=== PATIENT | female | born 1950 | race Caucasian/White ===

== ENCOUNTER 2022-05-21 10:59 | Outpatient (CLI) | payer MEDICARE ==
[2022-06-01] MEDS ORDERED: MAGN400O6 PO (07:38)
[2022-06-01] MEDS ORDERED: ASPI-1100 PO (07:38)
[2022-06-01] MEDS ORDERED: OXYC5CAP18 PO (07:38)
[2022-06-01] MEDS ORDERED: DOCU100C36 PO (07:38)
== END 2022-05-21 23:59 | disposition home or self-care (01) ==
LOC: LAB 10:59
PROVIDERS: ATTEND Specialist
DX: Z01.812 Encounter for preprocedural laboratory examination (principal); Z20.822 Contact with and (suspected) exposure to COVID-19
CPT/HCPCS: U0003; C9803

== ENCOUNTER 2022-05-28 05:11 | Inpatient (IN) | payer MEDICARE, OTHER ==
[~2022-05-28] VITALS: Ht 162.6 cm; Wt 79.4 kg
[~2022-05-28 05:11] MED LIST: ANESTHESIA TRAY IN PYXIS 1 EA TRAY MC ONE
[2022-05-28] MEDS ORDERED: HYDROMORPHONE INJ 2 MG/ML DISP.SYRIN ONE (06:25)
[2022-05-28] MEDS ORDERED: FENTANYL PF 250MCG/5ML AMPUL ONE (06:25)
[2022-05-28] MEDS ORDERED: MIDAZOLAM HCL 2 MG/2ML VIAL ONE (06:26)
[2022-05-28] MEDS ORDERED: FAMOTIDINE/PF INJ 20 MG/2 ML VIAL IV ONE (06:27)
[2022-05-28] MEDS ORDERED: ROCURONIUM BROMIDE 50 MG/5 ML ONE (06:27)
[2022-05-28] MEDS ORDERED: SUCCINYLCHOLINE CHLORIDE 20 MG/ML VIAL ONE (06:27)
--- NOTE | 2022-05-28 06:32 | NUR ---
MS RN NOTES PT A/OX4 ABLE TO MAKE NEEDS KNOW LITHU[place]IAN SPEAKING BUT CAN UNDERSTAND [place]. PT HAS IV ACCESS ON THE R HAND #20G S/L CONSENTS SIGNED, URINE COLLECTED, ALL NECESSARY LABS ORDERED. VITAL SIGNS FOLLOWS BP129/70,HR 81, RR18,TEMP 98.2 O2 SAT 97%. PT BELONGING CHECKED BELONGINGS LEFT AT BEDSIDE. PT BROUGHT CANE WITH HER AT BEDSIDE.PT TAKEN BY TRANSPORTATION TO OR AT THIS TIME.
[2022-05-28 06:54] VITALS: BP 129/70
--- NOTE | 2022-05-28 07:38 | NUR ---
ms opening note received report from date night sitter rn,patient is currently in surgery
[2022-05-28] MEDS ORDERED: POLYMYXIN B SULFATE 500,000 UNITS ONE (07:45)
[2022-05-28] MEDS ORDERED: BUPIVACAINE 0.5 % PF 150 MG/30 ML VIAL ONE (07:45)
[2022-05-28] MEDS ORDERED: TRANEXAMIC ACID 3,000 MG in SODIUM CHLORIDE IRRIG SOLUTION 70 ML IR ONE (08:00)
--- NOTE | 2022-05-28 08:50 | NUR ---
ms rn note transexemic acid iv not given because patient is currently in day surgery
--- NOTE | 2022-05-28 10:00 | NUR ---
daughter at [facility] [place] [phone]
--- NOTE | 2022-05-28 10:04 | NUR ---
received patient from surgery. patient had left knee replacement under spinal and general anesthesia. patient currently has no pain. patient has Mcdermott catheter oxygen saturation needs to be greater than 90%. monitor 02 patient is allergic to penicillin and peanuts. pain management doctor Dr. chaidez will see her today will continue to assess patient post surgery
--- NOTE | 2022-05-28 11:00 | NUR ---
patient remains stable vital signs post surgery. bp is 116/72, oxygen saturation is above 97%
--- NOTE | 2022-05-28 11:00 | NUR ---
1st set of vital signs 116/75. hr 80 2nd set 107/78 hr 98. 02 89 3rd 114/68 o2 98 hr 88 4th 119/72 02 97. hr 85
[2022-05-28] MEDS ORDERED: ONDANSETRON HCL/PF 4 MG/2 ML VIAL IVP PRN ×2 (11:30→16:30)
[2022-05-28] MEDS ORDERED: MAG HYDROX/AL HYDROX/SIMETH 30 ML UDC PO PRN (11:30)
[2022-05-28] MEDS ORDERED: MORPHINE SULFATE INJ 4 MG/ML DISP.SYRIN IM/IV/SC ONE (11:30)
[2022-05-28] MEDS ORDERED: ZOLPIDEM TARTRATE 5 MG TABLET PO PRN ×2 (11:30→22:00)
[2022-05-28] MEDS ORDERED: DEXTROSE 50%-WATER 50 ML DISP.SYRIN IV PRN (11:30)
[2022-05-28] MEDS ORDERED: ACETAMINOPHEN 325 MG TABLET PO PRN ×2 (11:30→16:30)
[2022-05-28] MEDS ORDERED: Z GUARD REMEDY 4 OZ OINT TP PRN (11:30)
[2022-05-28] MEDS ORDERED: MAGNESIUM HYDROXIDE 30 ML UDC PO PRN (11:30)
--- NOTE | 2022-05-28 11:30 | NUR ---
ms rn note post surgery patient complains of pain at surgical site. administered morphine per md order. patient reports morphine helps relieve pain
[2022-05-28] MEDS ORDERED: PANTOPRAZOLE 40 MG TABLET.DR PO ONE ×3 (11:41→12:30)
[2022-05-28 12:00] VITALS: BP 123/66
[2022-05-28] MEDS ORDERED: diphenhydrAMINE HCL 25 MG CAPSULE PO PRN (12:00)
[2022-05-28 12:22] VITALS: BP 123/66
[2022-05-28] MEDS: BLOOD SUGAR DIAGNOSTIC 1 EACH STRIP IN SCH ×3 (12:47→21:57)
--- NOTE | 2022-05-28 13:00 | NUR ---
social work case manager with daughter about health services
--- NOTE | 2022-05-28 13:10 | NUR ---
protonix duplicate order
--- NOTE | 2022-05-28 14:00 | NUR ---
post surgery monitoring. patient maintains stable vital signs and o2 above 95%, and pain control
[2022-05-28 15:47] LABS: HEMOGLOBIN 10.2 g/dL (11.5-14.8)
[2022-05-28] MEDS ORDERED: HYDROCODONE/APAP 5/325MG TABLET PO PRN (16:30)
[2022-05-28] MEDS ORDERED: BISACODYL SUPP (10 MG) 10 MG/SUPP.RECT SUPP.RECT RC PRN (16:30)
[2022-05-28] MEDS ORDERED: IV D5/0.45 NACL 1,000 ML IV PRN (16:30)
[2022-05-28] MEDS ORDERED: SENNOSIDES 8.6 MG TABLET PO PRN (16:30)
[2022-05-28] MEDS: MORPHINE SULFATE INJ 4 MG/ML DISP.SYRIN IM/IV/SC PRN ×2 (16:43→20:11)
[2022-05-28] MEDS ORDERED: DOCUSATE SODIUM 250 MG CAPSULE PO PRN (17:00)
[2022-05-28] MEDS: DOCUSATE SODIUM 100 MG CAPSULE PO SCH (17:00)
[2022-05-28] MEDS: CLINDAMYCIN 600 MG in IV D5W 50 ML IV SCH ×2 (18:50→22:00)
[2022-05-28] MEDS: INSULIN REGULAR, HUMAN 100 UNIT/ML 3 ML VIAL SQ PRN ×2 (18:55→22:00)
--- NOTE | 2022-05-28 18:56 | NUR ---
RN NOTE- BS ACCUCHECK - 164. PT DIDN'T EAT DINNER. NO INSULIN ADMINISTERED
--- NOTE | 2022-05-28 19:00 | NUR ---
patient is on 2-4 L nasal cannula, 02 above 95%
--- NOTE | 2022-05-28 19:30 | NUR ---
ms closing note patient is in bed, alert and oriented x4. patient is hungarian speaking. patient is able to make needs know. no signs of pain or discomfort at this time. patient has iv site on right site. iv patent and flushing well. patient has guzmán cathether. yellow color draining to gravity. all safety measures in place. call light within reach. bed locked in lowest position. side rails up x2. endorsed to leg breaker nurse.
--- NOTE | 2022-05-28 19:32 | NUR ---
MS RN OPENING NOTE RECEIVED PATIENT IN BED, A/OX4. NO S/S OF APPARENT DISTRESS IN 4LPM OF O2 VIA NC. DENIES PAIN NOR DISCOMFORT AT THIS TIME AND PAIN IN TOLERABLE LEVEL. PATIENT R. HAND IV RUNNING ANTIBIOTICS AT THIS TIME-- ALMOST DONE. L. LEG NOTED TO HAVE JOSEFINA WRAP DRESSING AND ELEVATED. SAFETY IN PLACE. RE-ORIENTED AND ENCOURAGED WITH THE USE OF CALL LIGHT. WILL CONTINUE WITH THE PLAN OF CARE FOR PATIENT.
[2022-05-28 20:00] VITALS: BP 118/58
[2022-05-28] MEDS: ATORVASTATIN 40 MG TABLET PO SCH (21:55)
[2022-05-28] MEDS: PANTOPRAZOLE 40 MG TABLET.DR PO SCH (21:55)
[2022-05-28] MEDS: INSULIN GLARGINE, 100 UNIT/ML CARTRIDGE SQ SCH (21:59)
[2022-05-29] MEDS: oxyCODONE IR immediate release 5 MG PO PRN ×4 (00:05→16:19)
[2022-05-29] MEDS: CLINDAMYCIN 600 MG in IV D5W 50 ML IV SCH (03:59)
[2022-05-29 06:31] LABS: BASOPHILS % (AUTO) 0.4 % (0.0-2.0); EOSINOPHILS % (AUTO) 0.4 % (0.0-6.0); HEMATOCRIT 30 % (33-45); HEMOGLOBIN 10.2 g/dL (11.5-14.8); LYMPHOCYTES # (AUTO) 0.5 K/uL (0.8-4.8); LYMPHOCYTES % (AUTO) 7.1 % (20.0-44.0); MEAN CORPUSCULAR HGB CONC 35 g/dl (31.0-36.0); MEAN CORPUSCULAR VOLUME 92 fL (82-100); MONOCYTES # (AUTO) 0.5 K/uL (0.1-1.30); MONOCYTES % (AUTO) 6.2 % (2.0-12.0); NEUTROPHILS # (AUTO) 6.3 K/uL (1.8-8.9); NEUTROPHILS % (AUTO) 85.9 % (43.0-81.0); PLATELET COUNT (AUTO) 188 K/uL (150-450); RED BLOOD CELL COUNT(AUTO) 3.24 MIL/uL (4.0-5.2); WHITE BLOOD COUNT (AUTO) 7.3 K/uL (4.3-11.0)
[2022-05-29] MEDS: BLOOD SUGAR DIAGNOSTIC 1 EACH STRIP IN SCH ×4 (06:33→22:49)
[2022-05-29] MEDS: INSULIN REGULAR, HUMAN 100 UNIT/ML 3 ML VIAL SQ PRN ×4 (06:35→22:51)
[2022-05-29] MEDS: MORPHINE SULFATE INJ 4 MG/ML DISP.SYRIN IM/IV/SC PRN ×3 (06:42→21:03)
[2022-05-29 06:43] LABS: CALCIUM, SERUM 8.6 mg/dL (8.5-10.1); CREATININE 0.7 mg/dL (0.6-1.3); MAGNESIUM 1.9 mg/dL (1.8-2.4); PHOSPHORUS 4.2 mg/dL (2.5-4.9); POTASSIUM 4.5 mmol/L (3.5-5.1)
--- NOTE | 2022-05-29 07:08 | NUR ---
MS RN CLOSING PATIENT IN BED, A/OX4. NO S/S OF APPARENT DISTRESS IN 3LPM OF O2 VIS NC. DENIES ANY PAIN NOR DISCOMFORT AT THIS TIME-- PAIN MANAGED WITH MEDICATIONS. IV D5 1/2 NS RUNNING @125MLS/HR. ALL NEEDS ATTENDED. ALL SCHEDULED MEDICATIONS ADMINISTERED. L. JOSEFINA WRAP CLEAN, DRY AND INTACT. SAFETY KEPT IN PLACE THE WHOLE SHIFT. WILL ENDORSE TO MORNING SHIFT RN FOR CONTINUITY OF CARE.
--- NOTE | 2022-05-29 07:40 | NUR ---
RN OPENING NOTE PATIENT AWAKE IN BED RESTING. A/O X 4. PAIN LEVEL 3/10 NOTED AT THIS TIME, PAIN MEDICATION WAS GIVEN. ON 3L OXYGEN, NO DISTRESS OR SHORTNESS OF BREATH NOTED. IV ACCESS R HAND #20G, INTACT, PATENT AND FLUSHING WELL. FALL AND SAFETY MEASURES IN PLACE, BED ALARM ON, BED IN LOW AND LOCK POSITION, CALL LIGHT AND TABLE WITHIN EASY REACH, SIDE RAILS UP X2. WILL CONTINUE TO MONITOR.
[2022-05-29 08:00] VITALS: BP 116/96
[2022-05-29] MEDS: ASPIRIN EC 325 MG TABLET.DR PO SCH (08:23)
[2022-05-29] MEDS: DOCUSATE SODIUM 100 MG CAPSULE PO SCH ×2 (08:23→16:19)
[2022-05-29] MEDS ORDERED: ASPIRIN EC 81 MG TABLET.DR PO SCH (09:00)
--- NOTE | 2022-05-29 11:25 | NUR ---
RN NOTE PATIENT TEJADA CATHETER WAS REMOVED, OUTPUT 700ML, URINE CLEAR YELLOW, PATIENT DENIES ANY PAIN OR DISCOMFORT, PATIENT RESTING COMFORTABLY.
[2022-05-29] MEDS ORDERED: OMEP40CA21 PO (13:28)
[2022-05-29] MEDS ORDERED: INSU100I30 SQ (13:29)
[2022-05-29] MEDS ORDERED: ATOR40TA PO (13:29)
[2022-05-29] MEDS ORDERED: METF-442 PO (13:30)
[2022-05-29 17:25] VITALS: BP 136/68
[2022-05-29 17:31] VITALS: BP 136/68
--- NOTE | 2022-05-29 19:22 | NUR ---
RN CLOSING NOTE PATIENT AWAKE IN BED RESTING. A/O X 4. PAIN LEVEL 3/10 NOTED AT THIS TIME, PAIN MEDICATION WAS GIVEN THROUGHOUT THE SHIFT. ON 3L OXYGEN, NO DISTRESS OR SHORTNESS OF BREATH NOTED. IV ACCESS R HAND #20G, INTACT, PATENT AND FLUSHING WELL. ALL SCHEDULE MEDICATIONS ADMINISTERED. FALL AND SAFETY MEASURES IN PLACE, BED ALARM ON, BED IN LOW AND LOCK POSITION, CALL LIGHT AND TABLE WITHIN EASY REACH, SIDE RAILS UP X2. WILL ENDORSE TO LAYUP WORKER.
[2022-05-29 20:00] VITALS: BP 112/60
--- NOTE | 2022-05-29 21:23 | NUR ---
MS/TELE/RN DURING INITIAL SHIFT ROUNDING, PATIENT WAS IN BED AWAKE, ALERT, ORIENTED, NO C/O PAIN, NO DISTRESS NOTED, CALL LIGHT IN REACH, FALL PRECAUTIONS PER PROTOCOL, WILL MONITOR.
[2022-05-29] MEDS: ATORVASTATIN 40 MG TABLET PO SCH (22:49)
[2022-05-29] MEDS: PANTOPRAZOLE 40 MG TABLET.DR PO SCH (22:50)
[2022-05-29] MEDS: INSULIN GLARGINE, 100 UNIT/ML CARTRIDGE SQ SCH (22:53)
--- NOTE | 2022-05-30 00:38 | NUR ---
MS/TELE/RN PATIENT IS SLEEPING AT THIS TIME, NO SIGNS OF DISTRESS NOTED, CALL LIGHT IN REACH, WILL CONTINUE TO MONITOR.
[2022-05-30] MEDS: MORPHINE SULFATE INJ 4 MG/ML DISP.SYRIN IM/IV/SC PRN (04:32)
[2022-05-30 06:13] LABS: BASOPHILS % (AUTO) 0.4 % (0.0-2.0); EOSINOPHILS % (AUTO) 2.2 % (0.0-6.0); HEMATOCRIT 28 % (33-45); HEMOGLOBIN 9.6 g/dL (11.5-14.8); LYMPHOCYTES # (AUTO) 0.7 K/uL (0.8-4.8); LYMPHOCYTES % (AUTO) 10.4 % (20.0-44.0); MEAN CORPUSCULAR HGB CONC 35 g/dl (31.0-36.0); MEAN CORPUSCULAR VOLUME 92 fL (82-100); MONOCYTES # (AUTO) 0.7 K/uL (0.1-1.30); MONOCYTES % (AUTO) 10.8 % (2.0-12.0); NEUTROPHILS # (AUTO) 5.2 K/uL (1.8-8.9); NEUTROPHILS % (AUTO) 76.2 % (43.0-81.0); PLATELET COUNT (AUTO) 175 K/uL (150-450); RED BLOOD CELL COUNT(AUTO) 2.99 MIL/uL (4.0-5.2); WHITE BLOOD COUNT (AUTO) 6.8 K/uL (4.3-11.0)
[2022-05-30] MEDS: BLOOD SUGAR DIAGNOSTIC 1 EACH STRIP IN SCH ×4 (06:29→21:58)
[2022-05-30] MEDS: INSULIN REGULAR, HUMAN 100 UNIT/ML 3 ML VIAL SQ PRN ×4 (06:32→21:59)
--- NOTE | 2022-05-30 06:39 | NUR ---
MS/TELE/RN PATIENT IS AWAKE, ALERT, ORIENTED, NO C/O PAIN, NO DISTRESS NOTED, CALL LIGHT IN REACH, ALL NEEDS ATTENDED AT THIS TIME, WILL CONTINUE TO MONITOR.
[2022-05-30 07:14] LABS: CALCIUM, SERUM 8.6 mg/dL (8.5-10.1); CREATININE 0.8 mg/dL (0.6-1.3); MAGNESIUM 2.3 mg/dL (1.8-2.4); PHOSPHORUS 3.7 mg/dL (2.5-4.9); POTASSIUM 4.3 mmol/L (3.5-5.1)
--- NOTE | 2022-05-30 07:20 | NUR ---
RN OPENING NOTES PATIENT AWAKE IN BED RESTING. A/O X4. ALBANIAN SPEAKING. ON 3L OF O2 VIA NC, NO DISTRESS OR SOB NOTED. IV ACCESS R HAND #20G, INTACT, PATENT AND FLUSHING WELL. FALL AND SAFETY MEASURES IN PLACE, BED ALARM ON, BED IN LOW POSITION WITH WHEEL BREAKS ON, CALL LIGHT AND TABLE WITHIN EASY REACH, SIDE RAILS UP X2. WILL CONTINUE TO MONITOR.
[2022-05-30 08:00] VITALS: BP 113/62
[2022-05-30] MEDS: ASPIRIN EC 325 MG TABLET.DR PO SCH (08:27)
[2022-05-30] MEDS: DOCUSATE SODIUM 100 MG CAPSULE PO SCH ×2 (08:27→16:58)
[2022-05-30] MEDS: oxyCODONE IR immediate release 5 MG PO PRN ×2 (09:28→20:41)
--- NOTE | 2022-05-30 09:30 | NUR ---
RN NOTES PATIENT SEEN BY PT
--- NOTE | 2022-05-30 15:00 | NUR ---
RN NOTES PATIENT ON 1.5 L OF O2 VIA NC WITH SAT OF 94%. NO SOB OR COMPLAINTS NOTED AT THIS TIME. WILL CONTINUE TO MONITOR
[2022-05-30 16:00] VITALS: BP 118/66
--- NOTE | 2022-05-30 19:31 | NUR ---
RN CLOSING NOTES PATIENT IN BED WITH NO COMPLAINTS AT THIS TIME. ALL NEEDS MET. SAFETY PRECAUTIONS IN PLACE. ENDORSED REPORT TO THE GED PREPARATION TEACHER NURSE FOR JL
[2022-05-30 20:00] VITALS: BP 118/66
--- NOTE | 2022-05-30 20:44 | NUR ---
RECEIVED PATIENT IN BED, ALERT/ORIENTED X4, 2LPM VIA NC, COMPLAINING OF PAIN TO LEFT KNEE, S/P LEFT KNEE ARTHROPLASTY, GIVEN OXYCODONE IR 5 MG. DENIES LEFT LEG NUMBNESS, ABLE TO PERFORM DORSI AND PLANTARFLEXION. JOSEFINA WRAP IS DRY AND INTACT. BEING MONITORED CLOSELY AFTER TAKING PAIN MEDICATION, KEPT SAFE, WILL CONTINUE TO MONITOR.
[2022-05-30] MEDS: INSULIN GLARGINE, 100 UNIT/ML CARTRIDGE SQ SCH (22:00)
[2022-05-30] MEDS: ATORVASTATIN 40 MG TABLET PO SCH (22:03)
[2022-05-30] MEDS: PANTOPRAZOLE 40 MG TABLET.DR PO SCH (22:04)
[2022-05-31] MEDS: oxyCODONE IR immediate release 5 MG PO PRN ×5 (05:59→21:08)
[2022-05-31 06:29] LABS: BASOPHILS % (AUTO) 0.5 % (0.0-2.0); EOSINOPHILS % (AUTO) 3.7 % (0.0-6.0); HEMATOCRIT 27 % (33-45); HEMOGLOBIN 9.3 g/dL (11.5-14.8); MEAN CORPUSCULAR HGB CONC 35 g/dl (31.0-36.0); MEAN CORPUSCULAR VOLUME 92 fL (82-100); MONOCYTES # (AUTO) 0.7 K/uL (0.1-1.30); MONOCYTES % (AUTO) 10.7 % (2.0-12.0); NEUTROPHILS # (AUTO) 4.9 K/uL (1.8-8.9); NEUTROPHILS % (AUTO) 71.1 % (43.0-81.0); PLATELET COUNT (AUTO) 173 K/uL (150-450); WHITE BLOOD COUNT (AUTO) 6.9 K/uL (4.3-11.0)
[2022-05-31] MEDS: INSULIN REGULAR, HUMAN 100 UNIT/ML 3 ML VIAL SQ PRN ×2 (06:43→11:57)
[2022-05-31] MEDS: BLOOD SUGAR DIAGNOSTIC 1 EACH STRIP IN SCH ×4 (06:45→21:12)
[2022-05-31 06:59] LABS: CALCIUM, SERUM 8.4 mg/dL (8.5-10.1); CREATININE 0.8 mg/dL (0.6-1.3); MAGNESIUM 2.2 mg/dL (1.8-2.4); PHOSPHORUS 3.6 mg/dL (2.5-4.9); POTASSIUM 4.2 mmol/L (3.5-5.1)
--- NOTE | 2022-05-31 06:59 | NUR ---
S/P LEFT KNEE ARTHROPLASTY, ALERT/ORIENTED X4, COMPLAINING OF PAIN TO LEFT KNEE, GIVEN OXYCODONE 5 MG AND 10 MG PO. DRESSING DRY AND INTACT, DENIES NUMBNESS, ABLE TO PERFORM DORSIFLEXION AND PLANTARFLEXION, ENCOURAGE AMBULATION, FOR DISCHARGE PLANNING, FAMILY PREFERS HOME.
--- NOTE | 2022-05-31 07:50 | NUR ---
RN OPENING NOTE PATIENT AWAKE IN BED RESTING. A/O X 4. NO PAIN NOTED AT THIS TIME. ON 2L OXYGEN, NO DISTRESS OR SHORTNESS OF BREATH NOTED. IV ACCESS R HAND #20G, INTACT, PATENT AND FLUSHING WELL. FALL AND SAFETY MEASURES IN PLACE, BED ALARM ON, BED IN LOW AND LOCK POSITION, CALL LIGHT AND TABLE WITHIN EASY REACH, SIDE RAILS UP X2. WILL CONTINUE TO MONITOR.
[2022-05-31 08:00] VITALS: BP 110/60
[2022-05-31] MEDS: DOCUSATE SODIUM 100 MG CAPSULE PO SCH ×2 (08:28→17:07)
[2022-05-31] MEDS: ASPIRIN EC 325 MG TABLET.DR PO SCH (08:28)
[2022-05-31 16:27] VITALS: BP 125/68
--- NOTE | 2022-05-31 18:33 | NUR ---
RN CLOSING NOTE PATIENT AWAKE IN BED RESTING. A/O X 4. NO PAIN NOTED AT THIS TIME. ON 2L OXYGEN, NO DISTRESS OR SHORTNESS OF BREATH NOTED. IV ACCESS R HAND #20G, INTACT, PATENT AND FLUSHING WELL. ALL SCHEDULE MEDICATIONS ADMINISTERED. FALL AND SAFETY MEASURES IN PLACE, BED ALARM ON, BED IN LOW AND LOCK POSITION, CALL LIGHT AND TABLE WITHIN EASY REACH, SIDE RAILS UP X2. WILL ENDORSE TO SLATE CUTTER OPERATOR.
--- NOTE | 2022-05-31 19:51 | NUR ---
RN OPENING NOTE; PATIENT IN BED AA/O X 4.ON 2L OXYGEN ORIN WELL NO SIGN SOB/DISTRESS NOTED.BREATHING EVEN AND UNLABORED.NO COMPLAINE OF PAIN/DISCOMFORT AT THIS TIME. IV ACCESS R HAND #20G, INTACT, PATENT AND FLUSHING WELL.FALL AND SAFETY MEASURES IN PLACE, BED ALARM ON, BED IN LOW AND LOCK POSITION, CALL LIGHT AND TABLE WITHIN EASY REACH, SIDE RAILS UP X2. WILL CONTINUE TO MONITOR.
[2022-05-31 20:00] VITALS: BP 122/62
[2022-05-31] MEDS: ATORVASTATIN 40 MG TABLET PO SCH (21:14)
[2022-05-31] MEDS: PANTOPRAZOLE 40 MG TABLET.DR PO SCH (21:14)
[2022-05-31] MEDS: INSULIN GLARGINE, 100 UNIT/ML CARTRIDGE SQ SCH (21:22)
[2022-05-31 23:00] VITALS: BP 126/64
[2022-06-01] MEDS: oxyCODONE IR immediate release 5 MG PO PRN (01:55)
--- NOTE | 2022-06-01 02:03 | NUR ---
RN NOTES. PT COMPLAINING PAIN ON LEFT LEG 12/25.PRN OXYCONTIN 5MG WAS GIVEN.
[2022-06-01 05:59] LABS: BASOPHILS % (AUTO) 0.7 % (0.0-2.0); EOSINOPHILS % (AUTO) 5.9 % (0.0-6.0); HEMATOCRIT 24 % (33-45); HEMOGLOBIN 8.3 g/dL (11.5-14.8); LYMPHOCYTES # (AUTO) 1.3 K/uL (0.8-4.8); LYMPHOCYTES % (AUTO) 19.9 % (20.0-44.0); MEAN CORPUSCULAR HGB CONC 35 g/dl (31.0-36.0); MEAN CORPUSCULAR VOLUME 91 fL (82-100); MONOCYTES # (AUTO) 0.7 K/uL (0.1-1.30); MONOCYTES % (AUTO) 10.8 % (2.0-12.0); NEUTROPHILS # (AUTO) 3.9 K/uL (1.8-8.9); NEUTROPHILS % (AUTO) 62.7 % (43.0-81.0); PLATELET COUNT (AUTO) 195 K/uL (150-450); RED BLOOD CELL COUNT(AUTO) 2.65 MIL/uL (4.0-5.2); WHITE BLOOD COUNT (AUTO) 6.3 K/uL (4.3-11.0)
[2022-06-01] MEDS: BLOOD SUGAR DIAGNOSTIC 1 EACH STRIP IN SCH ×2 (06:05→11:48)
[2022-06-01] MEDS: INSULIN REGULAR, HUMAN 100 UNIT/ML 3 ML VIAL SQ PRN ×2 (06:07→11:49)
--- NOTE | 2022-06-01 06:13 | NUR ---
RN CLOSING NOTE;322 PATIENT IN BED AA/O X 4.ON 2L OXYGEN ORIN WELL NO SIGN SOB/DISTRESS NOTED.BREATHING EVEN AND UNLABORED.DUE MEDS GIVEN ORDER.IV ACCESS R HAND #20G, INTACT, PATENT AND FLUSHING WELL.ALL NEEDS ATTENDED.FALL AND SAFETY MEASURES IN PLACE, BED ALARM ON, BED IN LOW AND LOCK POSITION, CALL LIGHT AND TABLE WITHIN EASY REACH, SIDE RAILS UP X2. WILL ENDORSED TO NEXT SHIFT..
[2022-06-01 06:40] LABS: CALCIUM, SERUM 8.1 mg/dL (8.5-10.1); CREATININE 0.7 mg/dL (0.6-1.3); MAGNESIUM 2.3 mg/dL (1.8-2.4); PHOSPHORUS 3.9 mg/dL (2.5-4.9)
--- NOTE | 2022-06-01 07:25 | NUR ---
RN OPENING NOTES PATIENT AWAKE IN BED RESTING. A/O X4. [place] SPEAKING WITH SOME [place]. ON 1L OF O2 VIA NC, NO S/S SOB NOTED. PT REPORTS PAIN LEVEL 9/10 AT L KNEE, WILL MEDICATE ORDERED FOR PAIN LEVEL. IV ACCESS R HAND #20G, INTACT, PATENT AND FLUSHING WELL. FALL AND SAFETY MEASURES IN PLACE, BED ALARM ON, BED LOCKED AND IN N LOWEST POSITION, CALL LIGHT AND TABLE WITHIN EASY REACH, SIDE RAILS UP X2. WILL CONTINUE TO MONITOR.
[2022-06-01] MEDS ORDERED: MAGN400O6 PO (07:38)
[2022-06-01] MEDS ORDERED: ASPI-1100 PO (07:38)
[2022-06-01] MEDS ORDERED: DOCU100C36 PO (07:38)
[2022-06-01] MEDS ORDERED: OXYC5CAP18 PO (07:38)
[2022-06-01] MEDS: MORPHINE SULFATE INJ 4 MG/ML DISP.SYRIN IM/IV/SC PRN (07:47)
[2022-06-01 08:00] VITALS: BP 114/60
[2022-06-01] MEDS: ASPIRIN EC 325 MG TABLET.DR PO SCH (08:41)
[2022-06-01] MEDS: DOCUSATE SODIUM 100 MG CAPSULE PO SCH (08:41)
--- NOTE | 2022-06-01 13:26 | NUR ---
BLENDING TANK TENDER HELPER NOTES: DC ORDERS CARRIED OUT. PT ON STABLE CONDITION, VITALS WNL, NO S/S OF SOB AND ACUTE DISTRESS UPON DC. PER CM PT WILL HAVE HH FOR PHYSICAL THERAPY IV ACCESS AND ID BAND REMOVED. DISCHARGE INSTRUCTIONS DONE, PT VERBALIZED UNDERSTANDING. DC FORMS AND BELONGINGS LIST SIGNED BY PT, COPIES IN CHART. TRANSPORTED VIA [facility]BULANCE RUN# [id number], COMPANY- [employer], MAN- Tj [employer]REU.
== END 2022-06-01 13:40 | disposition home health service (06) | DRG 470 ==
LOC: DS 05:11 → MED 05:13
PROVIDERS: ADMIT Nurse Practitioner Acute Care; ATTEND Nurse Practitioner Acute Care
PROC: 0SRD0J9 Replacement of Left Knee Joint with Synthetic Substitute, Cemented, Open Approach (ICD-10-PCS; principal; 2022-05-28)
DX: M17.12 Unilateral primary osteoarthritis, left knee (principal); E87.1 Hypo-osmolality and hyponatremia; E11.9 Type 2 diabetes mellitus without complications; E66.9 Obesity, unspecified; K21.9 Gastro-esophageal reflux disease without esophagitis; Z68.30 Body mass index [BMI] 30.0-30.9, adult; Z86.73 Personal history of transient ischemic attack (TIA), and cerebral infarction without residual deficits; E78.5 Hyperlipidemia, unspecified; M81.0 Age-related osteoporosis without current pathological fracture; K58.9 Irritable bowel syndrome, unspecified; J30.9 Allergic rhinitis, unspecified; K57.90 Diverticulosis of intestine, part unspecified, without perforation or abscess without bleeding; Z96.641 Presence of right artificial hip joint
CPT/HCPCS: 36415; 80048-TC; 80061-TC; 82728-TC; 82962-TC; 83540-TC; 83735-TC; 84100-TC; 85025-TC; 85027-TC; 87081-TC; 94799-TC; 97110-TC; 97112-TC; 97116-TC; 97530-TC; 97760-TC; A4217; C1713; C1776; G0378; J0330; J1170; J1815; J2250; J2270; J2405; J2704; J2765; J3010; J3490; J7030; J7060; L1830